=== PATIENT | male | born 1995 | race Caucasian/White ===

== ENCOUNTER 2023-08-18 16:28 | Emergency (ER) | payer OTHER, SELFPAY ==
[2023-08-18 16:41] VITALS: BP 131/85; PULSE 72; RESP 15; TEMP 36.6; O2SAT 100; BMI 28.0
--- NOTE | 2023-08-18 18:59 | XRR_ITS ---
PROCEDURE INFORMATION: Exam: XR Chest Exam date and time: 08/18/2023 7:02 PM Age: 28 years old Clinical indication: Chest wall pain; Patient HX: C/O chest discomfort from intractable hiccups over last three days. ; Additional info: Cp, hiccups TECHNIQUE: Imaging protocol: Radiologic exam of the chest. Views: 1 view. COMPARISON: CR XR chest 2V* [id number] 05/24/2017 3:50 PM FINDINGS: Lungs: Unremarkable. No consolidation. Pleural spaces: Unremarkable. No pleural effusion. No pneumothorax. Heart/Mediastinum: Unremarkable. No cardiomegaly. Bones/joints: Unremarkable. XR/XR chest 1V portable [id number] IMPRESSION: No acute findings.
--- NOTE | 2023-08-18 19:17 | ED_ITS ---
HPI - General Adult General: Chief complaint: General Medical Stated complaint: Hiccups Time Seen by Provider: 08/18/23 18:27 History of Present Illness: 28-year-old male with a history of hiccu ps since Saturday. No prior anesthesia or other procedures. No chest trauma. He notes a slight pain to his chest at the end of his breaths because of prolonged hiccups. They are currently not present, and have gone away for short periods since Saturday, but always seem to come back. He has not had this problem before. Associated symptoms: Deny confusion, dyspnea, headache(s), nausea, rash, palpitations or vomiting Review of Systems Const: Denies: fever(s), chills or body aches Eyes: Denies: change in vision Card: Denies: palpitations Resp: Denies: dyspnea, productive cough, non-productive cough or wheezing GI: Denies: abdominal pain, nausea, vomiting, diarrhea or hematochezia Skin/Breast: Denies: rash Neuro: Denies: headache(s), weakness in extremities, dizziness or confusion Physical Exam Const: COMMON NORMALS: no acute distress GENERAL APPEARANCE: cooperative; not ill appearing and not frail appearing HENMT: COMMON NORMALS: normocephalic, atraumatic and Normal external nose present HEAD & SCALP: normocephalic and atraumatic FACE & SINUS: normal facial exam and face symmetric NOSE: Normal external nose present Eye: COMMON NORMALS: Equal, round and reactive pupils present and EOMs intact bilaterally PUPIL: Yes Equal, round and reactive pupils present Neck/C-Spine: GENERAL: Yes trachea midline Chest: CHEST: Yes Symmetrical chest wall rise Resp: COMMON NORMALS: normal respiratory effort, No retractions, No use of accessory muscles and clear to auscultation bilaterally AUSCULTATION: clear to auscultation bilaterally Cardio: COMMON NORMALS: regular rate and regular rhythm RATE: regular rate RHYTHM: regular rhythm GI: COMMON NORMALS: Normal to inspection, nondistended, normoactive bowel sounds present Extremity: COMMON NORMALS: no pedal edema Neuro: WILFRID COMA SCALE: document GCS findings Wilfrid coma scale eye opening: Spontaneous Wilfrid coma scale verbal response: Orientated [place] coma scale motor response: Obey commands [place] coma scale total score: 15 SENSORY EXAM: Yes extremities (intact) Psych: COMMON NORMALS: speech normal SPEECH: Yes normal speech Skin: COMMON NORMALS: no rashes or lesions noted GENERAL SKIN EXAM: no rashes or lesions noted Course Vital Signs: Vital signs: Vital Signs Temperature 97.8 F 08/18/23 19:51 Pulse Rate 69 08/18/23 19:51 Respiratory Rate 16 08/18/23 19:51 Blood Pressure 117/82 08/18/23 19:51 Pulse Oximetry 100 08/18/23 19:51 Oxygen Delivery Me thod Room Air 08/18/23 16:41 MDM - General Adult Medical Decision Making Chest x-ray is negative. EKG shows a sinus rhythm with a rate of 60 normal axis normal intervals and no acute ST wave changes. He will be allowed discharge. Will place on Thorazine for breakthrough hiccups. Lab Data Radiology Impressions Chest X-Ray 08/18/23 18:59 IMPRESSION: No acute findings. All radiology interpretation(s) finalized by discharge Discharge Plan Discharge Patient Disposition: Home Clinical Impression: Intractable hiccoughs Condition: Stable Prescriptions: New chlorpromazine 25 mg tablet 25 mg PO TID Qty: 20 0RF Discharge Orders: Discharge ED (Routine); Ordered 08/18/23 Ordered By: Nadeem Mccray Patient Instructions: Opioid Safety, Pain Management Activity Restrictions/Additional Instructions: If hiccups return tomorrow, start medication intake for at least 48 hours whether you have hiccups or not. You may take as needed following this. Return for any problems. Coding Level of Care Code ED Agri Business Agent for Radha Angel
--- NOTE | 2023-08-18 19:34 | ECG_ITS ---
[facility] Test Date: 2023-08-18 Pat Name: Cristian Eugene Department: Room: Gender: Male Social Work Coordinator: : 1995 Requested By: Nadeem New Order Number: [id number] Brooks MD: Denis Jean M.D. Measurements Intervals [place] Rate: 60 P: 53 ME: 131 QRS: 76 QRSD: 105 T: 52 QT: 387 QTc: 389 Interpretive Statements SINUS RHYTHM No previous ECG available for comparison Electronically Signed On 08-19-2023 10:55:43 CDT by Denis Jean M.D. [id number]
[2023-08-18] MEDS: chlorPROMazine 50 mg Tablet PO (19:47)
[2023-08-18 19:51] VITALS: BP 117/82; PULSE 69; RESP 16; TEMP 36.6; O2SAT 100
== END 2023-08-18 19:52 | disposition home or self-care (01) ==
PROVIDERS: Emergency Provider Emergency Medicine
DX: R06.6 Hiccough (principal)
CPT/HCPCS: 71045; 93005; 99284; Q0161

== ENCOUNTER 2023-11-11 06:53 | Emergency (ER) | payer OTHER, SELFPAY ==
[2023-11-11 06:59] VITALS: BP 140/97; PULSE 87; RESP 14; TEMP 36.7; O2SAT 98; BMI 30.2
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
--- NOTE | 2023-11-11 07:08 | ECG_ITS ---
[facility] Test Date: 2023-11-11 Pat Name: Cristian Eugene Department: Room: Gender: Male Aquatics Lifeguard: : 1995 Requested By: Naldo Wharton Order Number: [id number] Brooks MD: Denis Jean M.D. Measurements Intervals [place] Rate: 82 P: 63 [place]: 160 QRS: 74 QRSD: 97 T: 56 QT: 337 QTc: 394 Interpretive Statements SINUS RHYTHM POSSIBLE RIGHT ATRIAL ENLARGEMENT [0.25mV P-WAVE] POSSIBLE LEFT ATRIAL ENLARGEMENT [-0.1mV P-WAVE IN V1/V2] POSSIBLE RIGHT VENTRICULAR CONDUCTION DELAY [RSR (QR) IN V1/V2] Compared to ECG 08/18/2023 19:34:29 No significant changes Electronically Signed On 11-11-2023 12:46:13 CDT by Denis Jean M.D. [id number]
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
[2023-11-11] MEDS: tetanus-dipt-pertussis 0.5 mL SDV IM (07:13)
[2023-11-11 07:19] LABS: Basophils % 0.5 %; Eosinophils # 0.1 10^3/uL (0.0-0.8); Eosinophils % 1.2 %; Hematocrit 49.4 % (37-53); Lymphocytes # 1.8 10^3/uL (0.8-4.8); Lymphocytes % 24.4 %; Mean Corpuscular HGB Conc 34.8 g/dL (30-55); Mean Corpuscular Hemoglobin 30.2 pg (27-33); Mean Corpuscular Volume 86.7 fl (82-101); Mean Platelet Volume 9.5 fL (7.4-10.4); Monocytes # 0.5 10^3/uL (0.2-0.9); Monocytes % 6.6 %; Neutrophils # 4.98 10^3/uL (1.8-7.7); Nucleated Red Blood Cells % 0 %; Platelet Count 219 10^3/cmm (157-399); Red Cell Distribution Width 12.2 % (12.1-15.1); White Blood Count 7.43 10^3/uL (3.29-11.43)
[2023-11-11 07:35] LABS: Alanine Aminotransferase 38 U/L (0-41); Albumin Level 4.4 g/dL (3.5-5.2); Alkaline Phosphatase 80 U/L (40-130); Anion Gap 15.5 (5-19); Aspartate Amino Transferase 26 U/L (0-40); Blood Urea Nitrogen 7 mg/dL (6-20); Calcium 9.2 mg/dL (8.5-10.5); Carbon Dioxide 22 mmol/L (22-29); Chloride 106 mmol/L (98-107); Creatinine Clr Calc Pharmacy 124.9504; Globulin 2.4 g/dL (1.3-4.6); Glomerular Filtration Rate 89.6 mL/min (90-130); Glucose 120 mg/dL (65-115); Osmolality Calculated 289 mOsm/kg (285-295); Potassium 3.5 mmol/L (3.5-5.1); Sodium 140 mmol/L (136-145); Total Bilirubin 0.4 mg/dL (0.15-1.2); Total Protein 6.8 g/dL (6.6-8.7)
[2023-11-11] MEDS: mupirocin oint 22 gm 1 APPLIC TOPICAL ×2 (08:07→08:08)
[2023-11-11 08:29] LABS: Add Urine Microscopic? YES; Bilirubin Urine Neg (Negative); Blood Urine Neg (Negative); Glucose Urine UA Norm (Normal); Ketones Urine Negative (Negative); Leukocyte Esterase Urine Negative (Negative); Nitrate Urine Negative (Negative); Protein Urine Trace (Negative); Squamous Epithelial Cell Urine RARE /hpf (0-5); Urine Appearance Clear (CLEAR); Urine Color Yellow (Yellow); Urobilinogen Urine Norm (Negative); WBC Urine 0-4 /hpf (0-5); pH Urine 6 (5-7)
[2023-11-11 08:30] LABS: Add Urine Culture? No; Bacteria Urine TRACE /hpf; Mucus Urine M /hpf
[2023-11-11 08:31] VITALS: BP 133/89; PULSE 89; O2SAT 98
[2023-11-11 08:53] VITALS: BP 103/84; PULSE 79; O2SAT 95
== END 2023-11-11 08:54 | disposition home or self-care (01) ==
PROVIDERS: Emergency Provider Family Medicine
DX: S30.811A Abrasion of abdominal wall, initial encounter (principal); S40.211A Abrasion of right shoulder, initial encounter; S40.811A Abrasion of right upper arm, initial encounter; S80.211A Abrasion, right knee, initial encounter; S90.811A Abrasion, right foot, initial encounter; V20.49XA Other motorcycle driver injured in collision with pedestrian or animal in traffic accident, initial encounter; Z23 Encounter for immunization
CPT/HCPCS: 71045; 72040; 73030; 73080; 73562; 73610; 73630; 80053; 81001; 85025; 90471; 90715; 93005; 99285